=== PATIENT | female | born 1995 | race African-American/Black ===

== ENCOUNTER 2021-10-13 17:33 | Emergency (ER) | payer MEDICAID, OTHER ==
[~2021-10-13] VITALS: Ht 180.3 cm; Wt 75.0 kg
[2021-10-13 19:03] VITALS: BP 136/76
[2021-10-13 20:03] LABS: Basophils # (auto) 0 10 ^3/uL (0-0.2); Eosinophils # (auto) 0.1 10 ^3/uL (0-0.8); Neutrophils # (auto) 5.6 10 ^3/uL (1.6-8.6); Red Cell Distribution Width 15.6 % (11.8-14.3)
[2021-10-13 20:06] LABS: Basophils % (auto) 0.4 % (0.0-2.0); Eosinophils % (auto) 1.6 % (0.0-7.0); Hematocrit 37.4 % (36.0-46.0); Hemoglobin 11.5 g/dL (12.2-16.2); Lymphocytes # (auto) 2.2 10 ^3/uL (0.4-5.4); Lymphocytes % (auto) 26.2 % (10.0-50.0); Mean Corpuscular Hemoglobin 24.2 pg (28.0-32.0); Mean Corpuscular Hgb Conc. 30.8 g/dL (32.0-36.0); Mean Corpuscular Volume 78.5 fL (80.0-100.0); Monocytes # (auto) 0.4 10 ^3/uL (0-1.3); Monocytes % (auto) 5.3 % (0.0-12.0); Neutrophils % (auto) 66.5 % (37.0-80.0); Red Blood Cells 4.77 10^6/uL (4.0-5.20); White Blood Cell 8.5 10^3/uL (4.4-10.8)
[2021-10-13 20:20] LABS: Albumin 3.9 g/dL (3.4-5.0); Calcium 8.9 mg/dL (8.5-10.1); Potassium 3.9 mmol/L (3.5-5.1)
[2021-10-13 20:24] LABS: BUN/Creatinine Ratio 14.3; Bilirubin, Total 0.2 mg/dL (0.2-1.0); Total Protein 7.2 g/dL (6.4-8.2)
[2021-10-13 20:56] LABS: Urine Bacteria NONE SEEN /hpf (None Seen); Urine Blood Negative /uL (Negative); Urine Specific Gravity 1.017 (1.001-1.035); Urine WBC 1 /hpf (0 - 5)
== END 2021-10-13 22:04 | disposition home or self-care (01) ==
LOC: ER 17:33
DX: N63.0 Unspecified lump in unspecified breast (principal)
CPT/HCPCS: 36415; 74176; 76642; 80053; 81001; 81025; 83690; 85025

== ENCOUNTER 2023-07-25 10:30 | Emergency (ER) | payer MEDICAID ==
[~2023-07-25] VITALS: Ht 180.3 cm; Wt 94.7 kg
[2023-07-25 12:13] VITALS: BP 139/71; PULSE 99; RESP 16; TEMP 98.2; O2SAT 99
[2023-07-25] MEDS ORDERED: IBUP1TAB5 PO (12:46)
== END 2023-07-25 12:50 | disposition home or self-care (01) ==
LOC: ER 10:30
DX: M94.0 Chondrocostal junction syndrome [Tietze] (principal); R07.89 Other chest pain